=== PATIENT | male | born 1995 | race Caucasian/White ===

== ENCOUNTER 2020-01-08 04:32 | Emergency (ER) | payer OTHER, SELFPAY ==
[2020-01-08 04:33] VITALS: BP 134/86; PULSE 86; RESP 16; TEMP 37; O2SAT 100; BMI 32.1
--- NOTE | 2020-01-08 04:47 | RAD_ITS ---
STUDY: X-RAY - RIGHT HAND REASON FOR EXAM: Male, 24 years old. injured at work -- ? fb area between rt 1st and 2nd distal metacarpals TECHNIQUE: 3 view(s) of the hand. COMPARISON: None. FINDINGS: Normal radiocarpal articulation. Normal distal radioulnar joint. Normal visualized carpal bones. Normal carpal articulations Normal carpometacarpal articulation of the thumb. Normal second through fifth carpometacarpal joints. Normal metacarpi. Normal metacarpophalangeal joint of the thumb. Normal interphalangeal joint of the thumb. Normal proximal and distal phalanges of the thumb. Normal metacarpophalangeal joints of the second through fifth fingers. Normal proximal and distal interphalangeal joints of the second through fifth fingers. Normal phalanges of the second through fifth fingers. There is focal soft tissue emphysema medial to the distal first metacarpal. Within the area of soft tissue emphysema, there is a 0.5 x 2 mm faint radiodensity, which is likely representing a foreign body. RAD/Hand Min 3 Views IMPRESSION: 2 mm faintly radiodense foreign body medial to the distal first metacarpal shaft. No demonstrated fracture, dislocation, or destructive osseous lesion. Electronically Signed: Johnnie Perez MD at 5:20 EDT , Service support ,
--- NOTE | 2020-01-08 04:56 | ED.DCSUM_ITS ---
- ER Visit Summary Date of Service: 01/08/20 Chief Complaint: [Injury to right hand] History of Present Illness: The patient is a 24 M [presents the emergency department with an injury to the right hand that occurred while at work today. Patient was using a plasma cutter to cut metal when he accidentally cut his right hand with it. Apparently the beam went through his glove and lacerated the space between his thumb and index finger. Patient is left-hand dominant. Patient is up-to-date on tetanus.] Physical Examination: [Hand-patient has a 1 cm Y-shaped laceration over the webspace between the thumb and index finger with some denuded skin noted around the wound. No eschar noted. Patient states he chronically has decreased sensation to the hand as he has had surgery for nerve repair of his right hand. He is able to feel a sharp wooden edge of Q-tip. Neurovascularly intact distally.] Test Results: [X-ray of right hand obtained and no evidence of foreign body noted.] Emergency Department Course and Treatment: [Laceration repair-area sterilely draped and prepped. Wound anesthetized locally with 1% lidocaine total 2 cc. Wound cleansed with Shur-Clens and irrigated with copious saline. Using 5-0 ny arianna a total of 1 single ruptured sutures placed. There was 1 some fine particulate debris that was removed from the wound. Clean dressing applied.] Treatment Plan: [Patient will be started on Keflex and given first dose in the emergency department. Patient to follow-up with burn center in 2 to 3 days for wound check.] Disposition: Discharged home in stable condition [] Impression: [Laceration right hand 1 cm Burn right hand second-degree with concern for third-degree] This note was generated with [employer] dictation software. It may contain incorrect words, spelling, and punctuation that were not noted in review of the chart prior to signing ED Disposition - Plan for ED Patient: Referrals: NOT,DEFINED [Primary Care Provider] -
--- NOTE | 2020-01-08 05:16 | ED.DEP ---
ED Disposition - Plan for ED Patient: Instructions: ED First- and [facility] Prescriptions: Cephalexin [Keflex] 500 mg PO Q6 #40 cap Prescription Printed Referrals: NOT,DEFINED [Primary Care Provider] - [facility]GROUP OF [facility]YSIC[facility]] - 1 Day for another exam
[2020-01-08] MEDS: Cephalexin 250 MG Capsule 500 MG PO (05:58)
== END 2020-01-08 06:05 | disposition home or self-care (01) ==
LOC: ED 05:47
PROVIDERS: Emergency Provider Emergency Medicine
DX: S61.421A Laceration with foreign body of right hand, initial encounter (principal); W26.8XXA Contact with other sharp object(s), not elsewhere classified, initial encounter; T23.201A Burn of second degree of right hand, unspecified site, initial encounter; X17.XXXA Contact with hot engines, machinery and tools, initial encounter; Y93.89 Activity, other specified; Y92.9 Unspecified place or not applicable; Y99.0 Civilian activity done for income or pay; Z72.0 Tobacco use
CPT/HCPCS: 12001; 73130; 99283; A4216

== ENCOUNTER 2020-12-09 00:56 | Emergency (ER) | payer OTHER, SELFPAY ==
[2020-12-09 00:57] VITALS: BP 122/84; PULSE 77; RESP 14; TEMP 36.7; O2SAT 100; BMI 34.1
--- NOTE | 2020-12-09 01:13 | ED.RN ---
E-DAVE is a Workman's Compensation test. Pretty was called and will arrive. PT is aware.
--- NOTE | 2020-12-09 01:38 | RAD_ITS ---
EXAM: XR RIGHT HAND COMPLETE, 3 OR MORE VIEWS : 1995 CLINICAL INDICATION: injury to right 2nd digit after a 3/4 inch drill bit punctured finger. TECHNIQUE: Frontal, lateral and oblique views of the right hand. This report was created using [employer] report generation technology. COMPARISON: 01/08/2020 FINDINGS: BONES/JOINTS: Unremarkable. No acute fracture. No subluxation. Normal alignment. Preservation of the joint space. No sclerotic or destructive changes observed. SOFT TISSUES: Unremarkable. No soft tissue swelling or gas. No radiopaque foreign body. RAD/Hand Min 3 Views IMPRESSION: Negative right hand x-rays. at 0201 Reported and signed by: Julio Lindsay MD Electronically Signed: Julio Lindsay MD at 2:00 EDT Tel , Service support ,
--- NOTE | 2020-12-09 01:43 | EX.ED.UPPERE ---
HPI History of Present Illness Chief Complaint: Upper Extremity Injury Informant: patient Occured/Mechanism Mechanism/Context: Yes injury Onset/Context/Timing Onset: Today Context: Sudden Onset Timing: Continuous Quality of Pain: Dull Current Severity: Mild Maximum Severity: Mild Associated Symptoms Associated Symptoms: Negative for Parasthesia, Weakness and Loss of Funtion Narrative Narrative: Patient is a healthy 25-year-old man who is left-hand dominant presents to the emergency department with right index finger injury. Patient was at work. He was using a drill to ream through steel. He states the drill got caught and he was backing it up. He ended up getting his finger pinched between the drill and the steel. He suffered a laceration on the dorsum of the right index finger. He denies other injury. Is otherwise been in his normal state of health. Tetanus Immunization: <5 years PFSH PFSH no medical history Home Medications NK 12/09/20 [History Last Taken Unknown] Allergy/AdvReac Type Severity Reaction Status Date / Time clarithromycin [From Biaxin] AdvReac Hives Verified 01/08/20 04:36 no significant family history no surgical history Social History Smoking Status: Current every day smoker ROS ROS ED Constitutional Constitutional ED: Denies chills or fever(s) Eyes Eyes: Denies blurry vision or change in vision ENT ENT ED: Denies ear pain or sore throat Cardiovascular Cardiovascular: Denies chest pain or palpitations Respiratory/Chest Respiratory/Chest: Denies cough, dyspnea or dyspnea on exertion Gastrointestinal Gastrointestinal: Denies abdominal pain, nausea or vomiting Genitourinary Genitourinary ED: Denies dysuria or urinary frequency Musculoskeletal Musculoskeletal: Denies arthralgias or myalgias Integumentary Denies rash Neurologic Neurologic: Denies headache(s) or paresthesias Psychiatric Psychiatric: Denies anxiety or depression Endocrine Endocrinology: Denies polydipsia or polyuria Allergic/Immunologic Allergic/Immunologic ED: Denies urticaria EXAM Physical Exam Const Vital Signs: 12/09/20 00:57 Temperature 98.1 F Temperature Source Oral Pulse Rate 77 Respiratory Rate 14 Blood Pressure 122/84 H Blood Pressure Mean 96 Pulse Ox 100 Oxygen Delivery Method Room Air Positive well nourished and well developed General Appearance ED: well developed HEENT Reports normocephalic, head/scalp atraumatic and moist mucous membranes Eyes PERRL and EOMs intact bilaterally Neck no lymphadenopathy and supple General: Negative for tenderness Chest Wall inspection of chest normal Resp normal respiratory effort and clear to auscultation bilaterally Cardio regular rate, regular rhythm and no murmurs GI normal to inspection, nondistended, normoactive bowel sounds Palpation: Negative for tender, guarding or rebound tenderness present Back/Spine no CVA tenderness Cervical Spine: Negative for cervical spine tenderness Thoracic Spine / Upper Back: Negative for thoracic spinal tenderness Extremity General Extremety ED: Negative for tenderness Right Upper Extremity: hand and digits other (Patient does have a 3 cm laceration overlying the proximal phalange on the dorsum of the finger. It does go over the joint. He is able to extend against opposition. There is no evidence of extensor tendon injury. It does not communicate with the deep tissue. His cap refill is normal. His two-p) Neuro oriented x3 and CN's II-XII intact bilaterally Neuro Narrative: No focal deficits appreciated. Sensorium / Orientation: alert Psych mental status grossly normal Skin no rashes or lesions noted, no wounds and skin turgor normal MDM MDM MDM Narrative Medical decision making narrative: Patient presents with finger laceration. I did obtain plain films of the hand. These are reviewed by both myself and the radiologist. There is no evidence of fracture or foreign body. The wound was anesthetized with 4 cc of 1% lidocaine with epinephrine. It was copiously irrigated. The wound was closed with 5 4-0 simple interrupted suture. Patient was placed in a bacitracin dressing and AlumaFoam splint. At this point, he will be discharged to follow-up with [facility]. The patient is comfortable with this plan of care. Impression 1. 3 cm right index finger laceration with repair Discharge Plan Triage Chief Complaint: Upper Extremity Injury ED Provider: Parth Hoang Dx/Rx/DC Orders Clinical Impression: Finger laceration Prescriptions: No Action NK RF: 0 Primary Care Provider: Care Physician,No Primary Referrals: [facility] [GROUP OF PHYSICIANS] - 3-5 Days Care Physician,No Primary [Primary Care Provider] -
[2020-12-09] MEDS: Lidocaine 1% /Epi 1:100 (20ml) 20 ML Vial INFILT (02:25)
== END 2020-12-09 02:31 | disposition home or self-care (01) ==
PROVIDERS: Emergency Provider Emergency Medicine
DX: S61.210A Laceration without foreign body of right index finger without damage to nail, initial encounter (principal); W23.1XXA Caught, crushed, jammed, or pinched between stationary objects, initial encounter; Y93.89 Activity, other specified; Y92.9 Unspecified place or not applicable; Y99.0 Civilian activity done for income or pay
CPT/HCPCS: 12002; 73130; 99285